=== PATIENT | female | born 2000 | race Asian ===

== ENCOUNTER 2018-09-17 19:59 | Inpatient (IN) | payer OTHER ==
[2018-09-17 21:09] LABS: APPEARANCE,URINE TURBID; BILIRUBIN,URINE NEGATIVE (NEGATIVE); COLOR,URINE YELLOW; GLUCOSE, URINE NEGATIVE (NEGATIVE); KETONES,URINE NEGATIVE (NEGATIVE); LEUKOCYTE ESTERASE,URINE LARGE (NEGATIVE); NITRITE,URINE POSITIVE (NEGATIVE); PROTEIN,URINE >=500 mg/dL (NEGATIVE); URINE SPECIFIC GRAVITY 1.019; UROBILINOGEN,URINE NEGATIVE mg/dL (<2.0)
[2018-09-17 21:19] LABS: URINE AMPHETAMINES SCREEN NEGATIVE; URINE BARBITURATES SCREEN NEGATIVE; URINE BENZODIAZEPINES SCREEN NEGATIVE; URINE COCAINE SCREEN NEGATIVE; URINE MARIJUANA (THC) SCREEN NEGATIVE; URINE METHADONE SCREEN NEGATIVE; URINE PHENCYCLIDINE SCREEN NEGATIVE
[2018-09-17] MEDS ORDERED: RINGERS SOLUTION,LACTATED 1,000 ML IV ONE (21:34)
[2018-09-17] MEDS ORDERED: CEFTRIAXONE INJ 1000 MG VIAL IV ONE (21:41)
[2018-09-17] MEDS ORDERED: ACETAMINOPHEN 325 MG TABLET PO PRN (21:42)
[2018-09-17] MEDS ORDERED: CEFTRIAXONE INJ 1000 MG VIAL ONE (21:50)
[2018-09-17] MEDS ORDERED: OXYCODONE-ACETAMINOPHEN 5-325 MG TABLET PO ONE (21:50)
[2018-09-17] MEDS ORDERED: OXYCODONE-ACETAMINOPHEN 5-325 MG TABLET ONE (21:51)
[2018-09-17] MEDS ORDERED: CEFTRIAXONE 1 GM/D5W RTU 1 GM/50 ML RTUPB IV SCH (22:00)
[2018-09-17 22:22] LABS: ABSOLUTE BASOPHILS # (AUTO) 0.1 10^3/uL (0.0-0.2); ABSOLUTE LYMPHOCYTES (AUTO) 1.7 10^3/uL (0.5-4.7); ABSOLUTE MONOCYTES (AUTO) 0.8 10^3/uL (0.1-1.4); BASOPHILS % (AUTO) 0.4 % (0-2); EOSINOPHILS % (AUTO) 0.2 % (0-6); HEMATOCRIT 32.5 % (36.0-47.0); HEMOGLOBIN 10.9 g/dL (12.0-15.5); MEAN CORPUSCULAR HEMOGLOBIN 26.4 pg (27.0-33.4); MEAN CORPUSCULAR HGB CONC 33.6 g/dL (32.0-36.0); MEAN CORPUSCULAR VOLUME 79 fl (80-97); MONOCYTES % (AUTO) 4.4 % (3-13); PLATELET COUNT 245 10^3/uL (150-450); RED BLOOD COUNT 4.14 10^6/uL (3.72-5.28); TOTAL CELLS COUNTED % (AUTO) 100 %; WHITE BLOOD COUNT 18.6 10^3/uL (4.0-10.5)
--- NOTE | 2018-09-17 22:30 | Admission Physical ---
Datetime Report Generated by CPN: 09/17/2018 22:30 CURRENT ADMISSION Chief Complaint: Signs/Symptoms UTI; Maternal Discomfort Chief Complaint Other: Right sided back pain Indication for Induction: Not Applicable Admit Impression : Medical Complication Admit Impression- Other: Suspected pyelonephritis Admit Plan: Admit to Unit; Observation/Evaluation ALLERGIES Medication Allergies: No Medication Allergies: No Known Allergies (09/17/2018) Latex: No Latex Allergies OBSTETRICAL HISTORY EDC: 01/16/2019 00:00 : 1 Para: 0 Term: 0 : 0 SAB: 0 IAB: 0 Ectopic: 0 Livin Cesareans: 0 VBACs: 0 Multiple Births: 0 PHYSICAL EXAM General: Normal HEENT: Normal Neurologic: Normal Thyroid: Deferred Heart: Normal Lungs: Normal Breast: Deferred Back: Abnormal Abdomen: Abnormal Genitourinary Exam: Abnormal Extremities: Normal DTRs: Deferred Pelvic Type: Not Done Physical Exam Comments: Right flank pain and suprapubic discomfort, uterus is soft and non-tender; Neurologic status is grossly intact Vital Signs: Reviewed; Within Normal Limits VAGINAL EXAM Contraction Comments: irregular MEMBRANES Membranes: Intact FETUS A EGA: 22.5 Monitoring: External US FHR- Baseline: 140 FHR Comments: Appropriate for gestational age Admit Comment: 18yo G1 @ 22w5d presents to L_D with complaints of dysuria, abdominal pain and right sided back pain. Urinary symptoms started 6 days earlier and pain started 3 days ago. Patient states she started hydrating and drinking cranberry juice. Pt admits to chills but denies any fevers. Pt with mild nausea and no emesis. Patient is a transfer from [facility] but has not established care in [place]. Patient's is newly and is in the . Patient states her last obstetrical visit was the first week of August for which she had her anatomy ultrasound. Patient denies any complications this until now. Pt states she declined genetic screening. [place] Discussed with pt that we will treat her with IV antibiotics, when pain improving, will discharge her with 2 weeks of po antibiotics. Discussed with pt after 2 weeks of antibiotics she will be on daily antibiotic supression until delivery. INFORMED CONSENT Signature: with User ID: [email or web address]
[2018-09-17 22:42] LABS: ANION GAP 10 (5-19); BLOOD UREA NITROGEN 7 mg/dL (7-20); CALCIUM 9.3 mg/dL (8.4-10.2); CARBON DIOXIDE 20 mmol/L (22-30); CHLORIDE 105 mmol/L (98-107); GLUCOSE 88 mg/dL (75-110); POTASSIUM 3.7 mmol/L (3.6-5.0); SODIUM 134.6 mmol/L (137-145)
[2018-09-17] MEDS: RINGERS SOLUTION,LACTATED 1,000 ML IV PRN (23:08)
[2018-09-18] MEDS ORDERED: ONDANSETRON HCL INJ/PF 4 MG/2 ML SDV ONE ×2 (00:33→07:13)
[2018-09-18] MEDS: ONDANSETRON HCL INJ/PF 4 MG/2 ML SDV IV PRN ×3 (00:37→11:07)
[2018-09-18] MEDS ORDERED: HYDROMORPHONE HCL INJ/PF 2 MG/ML AMPULE ONE (00:48)
[2018-09-18] MEDS ORDERED: HYDROMORPHONE HCL INJ/PF 2 MG/ML AMPULE IV ONE (01:30)
[2018-09-18 08:17] LABS: ABSOLUTE LYMPHOCYTES (AUTO) 1.9 10^3/uL (0.5-4.7); ABSOLUTE MONOCYTES (AUTO) 0.9 10^3/uL (0.1-1.4); ABSOLUTE NEUT (AUTO) 11.2 10^3/uL (1.7-8.2); BASOPHILS % (AUTO) 0.3 % (0-2); EOSINOPHILS % (AUTO) 0.3 % (0-6); HEMATOCRIT 29.6 % (36.0-47.0); HEMOGLOBIN 10.1 g/dL (12.0-15.5); LYMPHOCYTES % (AUTO) 13.3 % (13-45); MEAN CORPUSCULAR HEMOGLOBIN 26.8 pg (27.0-33.4); MEAN CORPUSCULAR VOLUME 79 fl (80-97); MONOCYTES % (AUTO) 6.4 % (3-13); PLATELET COUNT 222 10^3/uL (150-450); RED BLOOD COUNT 3.75 10^6/uL (3.72-5.28); RED CELL DISTRIBUTION WIDTH 13.1 % (11.5-14.0); SEGMENTED NEUTROPHILS % (AUTO) 79.7 % (42-78); TOTAL CELLS COUNTED % (AUTO) 100 %; WHITE BLOOD COUNT 14.1 10^3/uL (4.0-10.5)
[2018-09-18] MEDS: RINGERS SOLUTION,LACTATED 1,000 ML IV PRN ×2 (10:03→18:02)
--- NOTE | 2018-09-18 10:07 | PDOC PROGRESS REPORT ---
Subjective-OB Progress Note for:: 09/18/18 - PP Day #1, 14 year old, who lives with her grandparents, doing well, no complaints, A+, rubella Non immune, IOL for suspected IUGR, Bottlefeeding, Physical Exam (OB) Vital Signs: Intake & Output 09/17/18 09/18/18 09/19/18 06:59 06:59 06:59 Intake Total 1000 Balance 1000 Weight 56.1 kg - General General Appearance: Appears well, Alert In distress: None - Respiratory Respiratory Status: No respiratory distress - Abdominal Inspection: Normal Distension: No distension - Genitourinary Genitourinary Note: voiding - Extremities Upper extremity: Normal inspection Lower extremities: Edema - trace - Neurological Cognition: Normal Orientation: AAOx4 - Psychological Associated symptoms: Normal affect, Normal mood - Skin Skin Temperature: Warm Skin Moisture: Dry Objective-Diagnostic Laboratory: 09/18/18 08:06 09/17/18 22:00 09/17/18 09/17/18 09/17/18 20:15 22:00 22:00 WBC 18.6 H RBC 4.14 Hgb 10.9 L Hct 32.5 L MCV 79 L MCH 26.4 L MCHC 33.6 RDW 13.0 Plt Count 245 Seg Neutrophils % 86.0 H Lymphocytes % 9.0 L Monocytes % 4.4 Eosinophils % 0.2 Basophils % 0.4 Absolute Neutrophils 16.0 H Absolute Lymphocytes 1.7 Absolute Monocytes 0.8 Absolute Eosinophils 0.0 Absolute Basophils 0.1 Sodium 134.6 L Potassium 3.7 Chloride 105 Carbon Dioxide 20 L Anion Gap 10 BUN 7 Creatinine 0.52 Est GFR ( Amer) > 60 Est GFR (Non-Af Amer) > 60 Glucose 88 Calcium 9.3 Urine Color YELLOW Urine Appearance TURBID Urine pH 6.0 Ur Specific Curtis 1.019 Urine Protein >=500 H Urine Glucose (UA) NEGATIVE Urine Ketones NEGATIVE Urine Blood LARGE H Urine Nitrite POSITIVE H Ur Leukocyte Esterase LARGE H Urine WBC (Auto) >182 Urine RBC (Auto) >182 09/18/18 08:06 WBC 14.1 H RBC 3.75 Hgb 10.1 L Hct 29.6 L MCV 79 L MCH 26.8 L MCHC 34.0 RDW 13.1 Plt Count 222 Seg Neutrophils % 79.7 H Lymphocytes % 13.3 Monocytes % 6.4 Eosinophils % 0.3 Basophils % 0.3 Absolute Neutrophils 11.2 H Absolute Lymphocytes 1.9 Absolute Monocytes 0.9 Absolute Eosinophils 0.0 Absolute Basophils 0.0 Sodium Potassium Chloride Carbon Dioxide Anion Gap BUN Creatinine Est GFR ( Amer) Est GFR (Non-Af Amer) Glucose Calcium Urine Color Urine Appearance Urine pH Ur Specific Curtis Urine Protein Urine Glucose (UA) Urine Ketones Urine Blood Urine Nitrite Ur Leukocyte Esterase Urine WBC (Auto) Urine RBC (Auto) Assessment and Plan(PN) - Assessment and Plan (1) Teen Is this a current diagnosis for this admission?: Yes (2) (normal spontaneous vaginal delivery) Is this a current diagnosis for this admission?: Yes (3) growth restriction Is this a current diagnosis for this admission?: Yes (4) Tobacco abuse Is this a current diagnosis for this admission?: Yes (5) Group beta Strep positive Is this a current diagnosis for this admission?: Yes - Time Spent with Patient Time with patient: Less than 15 minutes Medications reviewed and adjusted accordingly: Yes - Disposition Anticipated Discharge: Home Within: within 24 hours
[2018-09-18] MEDS ORDERED: ONDANSETRON HCL INJ/PF 4 MG/2 ML SDV IV PRN (14:30)
[2018-09-18] MEDS ORDERED: ACETAMINOPHEN 325 MG TABLET PO PRN (15:24)
[2018-09-18] MEDS ORDERED: CEFTRIAXONE 1 GM/D5W RTU 1 GM/50 ML RTUPB IV ONE (21:20)
[2018-09-18] MEDS ORDERED: CEFTRIAXONE SODIUM 1,000 MG in DEXTROSE 5%-WATER 50 ML IV SCH (22:00)
[2018-09-18] MEDS ORDERED: CEFTRIAXONE 1 GM/D5W RTU 1 GM/50 ML RTUPB IV SCH (22:00)
[2018-09-19 13:45] VITALS: BP 103/60
--- NOTE | 2018-09-19 17:05 | PDOC DISCHARGE SUMMARY ---
Final Diagnosis Discharge Date: 09/19/18 - Final Diagnosis (1) Pyelonephritis affecting in second trimester Is this a current diagnosis for this admission?: Yes Discharge Data - Discharge Medication Home Medications: Vits96/Iron Fum/Folic [ Tablet] 1 each PO DAILY 09/17/18 Reason(s) for Admission: Other - CVA tenderness, UTI s/s Procedures: Ultrasound - Pt in second trimester with pyelo. Reviewed with Dr. Nguyen. Pt. asymptomatic and ready for discharge understands plan of care - Diagnosis Test Laboratory: Temp Pulse Resp BP Pulse Ox 98.5 F 77 16 103/60 100 09/19/18 13:43 09/19/18 13:43 09/19/18 13:43 09/19/18 13:43 09/19/18 13:43 09/17/18 09/17/18 09/18/18 20:15 22:00 08:06 RBC 4.14 3.75 Hgb 10.9 L 10.1 L Hct 32.5 L 29.6 L Urine Opiates Screen NEGATIVE - Discharge information/Instructions Discharge Activity: Activity As Tolerated Discharge Diet: As Tolerated, Regular Disposition: HOME, SELF-CARE Follow up with: [facility] in: 1, Weeks
== END 2018-09-19 14:10 | disposition home or self-care (01) | DRG 833 ==
LOC: LC 19:59 → LR 21:34 → 2S 09-18 09:00
PROVIDERS: ADMIT Obstetrics & Gynecology; ATTEND Obstetrics & Gynecology
DX: O23.02 Infections of kidney in pregnancy, second trimester (principal); Z3A.22 22 weeks gestation of pregnancy
CPT/HCPCS: 36415; 80048; 80307; 81001; 85025; 87086; 87088; 87186; 94760; J0696; J1170; J2405; J7120